=== PATIENT | male | born 1990 | race Caucasian/White ===

== ENCOUNTER 2021-04-16 06:26 | Emergency (ER) | payer OTHER ==
[~2021-04-16] VITALS: Ht 172.7 cm; Wt 79.4 kg
[2021-04-16 06:30] VITALS: BP 133/76
--- NOTE | 2021-04-16 06:30 | NUR ---
TO BED AMBULATORY
--- NOTE | 2021-04-16 06:48 | NUR ---
DR. MCCLAIN EXAMINING PT.
[2021-04-16] MEDS ORDERED: NACL 0.9% 1,000 ML IV ONE (06:55)
--- NOTE | 2021-04-16 07:00 | NUR ---
30 y/o male bib family c/o syncope x this am. Pt reports waking up this am with a sore dry throat, began coughing up phlegm and blood, felt dizzy, fainted, hit back of head, confused after injury for a couple of minutes. Slight scrape noted to the back of the head. Pt is A&O x 4, even steady gait, even unlabored respirations, no stroke symptoms noted. Pt denies n/v/d. pmedhx: depression nkda
--- NOTE | 2021-04-16 07:10 | NUR ---
BLOODWORK COLLECTED SENT TO LAB
--- NOTE | 2021-04-16 07:10 | NUR ---
Report and continuation of care received from LEONEL Nielsen.
--- NOTE | 2021-04-16 07:19 | NUR ---
X-RAY ANNUAL GIVING MANAGER TRANSPORTING PATIENT FOR X-RAY
--- NOTE | 2021-04-16 07:25 | NUR ---
Patient returned from CT with jay.
[2021-04-16 07:28] LABS: BASOPHILS % (AUTO) 0.5 % (0.0-2.0); EOSINOPHILS # (AUTO) 0.2 K/uL (0-0.4); EOSINOPHILS % (AUTO) 2.9 % (0.0-4.0); LYMPHOCYTES # (AUTO) 1.4 K/uL (2.0-11.5); LYMPHOCYTES % (AUTO) 21.2 % (20.5-51.1); MEAN CORPUSCULAR HEMOGLOBIN 30 pg (27-31); MEAN CORPUSCULAR HGB CONC 34 g/dL (33-37); MEAN CORPUSCULAR VOLUME 86.8 fL (80-94); MONOCYTES # (AUTO) 0.6 K/uL (0.8-1.0); MONOCYTES % (AUTO) 9.2 % (1.7-9.3); NEUTROPHILS # (AUTO) 4.4 K/uL (1.8-7.7); NEUTROPHILS % (AUTO) 66.2 % (42.2-75.2); PLATELET COUNT (AUTO) 234 K/uL (140-450); RED BLOOD CELL COUNT(AUTO) 5.07 MIL/uL (4.20-6.10); RED CELL DISTRIBUTION WIDTH 12.5 % (11.6-13.7); WHITE BLOOD COUNT (AUTO) 6.7 K/uL (4.8-10.8)
--- NOTE | 2021-04-16 07:39 | NUR ---
EMT at bedside for EKG
--- NOTE | 2021-04-16 07:47 | NUR ---
PATIENT AMBULATED WITH STEADY GAIT TO RESTROOM.
[2021-04-16 07:53] LABS: ALBUMIN 3.9 g/dL (3.4-5.0); ANION GAP 10.5 (8-16); CARBON DIOXIDE 26.3 mmol/L (21-32); CREATININE 0.7 mg/dL (0.6-1.3); POTASSIUM 3.8 mmol/L (3.5-5.1); TOTAL BILIRUBIN 0.4 mg/dL (0.0-1.0)
--- NOTE | 2021-04-16 07:56 | NUR ---
URINE SAMPLE OBTAINED, WALKED TO LAB. PATIENTS IV FLUIDS WERE STARTED.
--- NOTE | 2021-04-16 08:18 | NUR ---
[facility]
--- NOTE | 2021-04-16 08:28 | NUR ---
Pt returned from CT by jay.
[2021-04-16 08:29] LABS: PROTHROMBIN TIME 9.2 secs (10.8-13.4)
[2021-04-16 09:49] LABS: BARBITURATE, URINE NEGATIVE ng/ml (NEG <=200); BENZODIAZEPINE, URINE NEGATIVE ng/mL (NEG <=200); CANNABINOID, URINE POSITIVE ng/mL (NEG <=50); COCAINE, URINE NEGATIVE ng/mL (NEG <=300); OPIATE, URINE NEGATIVE ng/mL (NEG <=2000); PHENCYCLIDINE SCREEN,URINE NEGATIVE ng/mL (NEG <=25)
--- NOTE | 2021-04-16 09:51 | NUR ---
Dr doran at bedside re-evaluating patient
[2021-04-16 10:15] VITALS: BP 99/63
--- NOTE | 2021-04-16 10:15 | NUR ---
Chart checked and completed. The patient's care was reviewed and supervised by Bill Smith, RN, RN.
--- NOTE | 2021-04-16 10:16 | NUR ---
Patient discharged with INFORMATION FOR HEMOPTYSIS AND SYNCOPE v/s stable. Written and verbal after care instructions given. Patient verbalized understanding. Ambulatory with steady gait. All questions addressed prior to discharge. Advised to follow up with PMD. WORK NOTE HANDED TO PATIENT.
== END 2021-04-16 10:16 | disposition home or self-care (01) ==
LOC: MED 06:26
DX: R04.2 Hemoptysis (principal); R55 Syncope and collapse; F12.90 Cannabis use, unspecified, uncomplicated
CPT/HCPCS: 36415; 70450; 71275; 80053; 80305; 82550; 85025; 85610; 85730; 93005; 96360; 96361; 99285; Q9967; J7030